=== PATIENT | male | born 1975 | race Caucasian/White ===

== ENCOUNTER 2017-12-27 22:08 | Emergency (ER) | payer BC, OTHER ==
[~2017-12-27] VITALS: Ht 185.4 cm; Wt 104.5 kg
[2017-12-27 22:11] VITALS: BP 147/97
== END 2017-12-28 01:50 | disposition home or self-care (01) ==
LOC: ED 12-28 00:40
DX: K64.4 Residual hemorrhoidal skin tags (principal); F17.200 Nicotine dependence, unspecified, uncomplicated
CPT/HCPCS: 99283

== ENCOUNTER 2018-12-09 05:00 | Emergency (ER) | payer SELFPAY ==
[~2018-12-09] VITALS: Ht 188 cm; Wt 93.8 kg
[2018-12-09 05:09] VITALS: BP 140/94
[2018-12-09] MEDS ORDERED: BICILLIN-LA 1,200,000 UNITS/2 ML IM ONE (05:30)
[2018-12-09] MEDS ORDERED: KETOROLAC 30 MG/1 ML IM ONE (05:30)
[2018-12-09] MEDS ORDERED: KETOROLAC 30 MG/1 ML ONE (05:32)
== END 2018-12-09 06:24 | disposition home or self-care (01) ==
LOC: ED 06:17
DX: K02.9 Dental caries, unspecified (principal)
CPT/HCPCS: 96372; 99283; J0561; J1885